=== PATIENT | female | born 1990 | race Caucasian/White ===

== ENCOUNTER 2018-11-06 09:40 | Observation (INO) | payer BC ==
[2018-11-06] MEDS ORDERED: Acetaminophen 500 MG Tab PO ONE (09:55)
[2018-11-06] MEDS ORDERED: Sodium Chloride 0.9% 1,000 ML IV ONE ×2 (09:59→11:00)
[2018-11-06] MEDS ORDERED: Ondansetron 4 MG/2 ML SDV IVPUSH STA (10:00)
--- NOTE | 2018-11-06 10:05 | EDM.PDOC ---
ED HPI GENERAL MEDICAL PROBLEM - General Chief Complaint: General Stated Complaint: shaking, R) breast pain Time Seen by Provider: 11/06/18 09:54 Source of Information: Reports: Patient History Limitations: Reports: No Limitations - History of Present Illness INITIAL COMMENTS - FREE TEXT/NARRATIVE: This patient is a 28 year old female that presents to the ER. Patient reports that this payton she woke up at 5am with pain under the right breast. Patient reports that she noticed it was red and hot to touch. Patient reports that she also woke up feeling like she had a headache, generally weak, dizziness, felt like she was going to pass out, nauseated, vomited, pale. She reports as the morning has progressed, she has felt worse. She reports she feels like she can not walk because she is going to pass out. This patient had originally presented to the clinic, but was moved to the ER. The patient does appear generally ill. The patient reports that she had a delivery without complication on . She reports she has been breast pumping. She uses a bilateral breast pump every about 4 hours. She reports having no issues prior to today. Patient denies pain into the chest other than the right breast, syncope, abd pain, incision healed pain, pelvic pain, back pain, neck pain, neck stiffness, urinary/bowel changes. Onset: Today Onset Date: 11/06/18 Onset Time: 05:00 Duration: Getting Worse Location: Reports: Chest (right breast) Front/Back Body Image: 1 - redness, heat, tenderness, pain Quality: Reports: Ache Severity: Moderate Worsens with: Reports: None Associated Symptoms: Reports: Headaches, Loss of Appetite, Nausea/Vomiting, Weakness. Denies: Confusion, Chest Pain, Cough, cough w sputum, Diaphoresis, Fever/Chills, Malaise, Rash, Seizure, Shortness of Breath, Syncope Right Breast Pain Score (Numeric/FACES): 7 - Related Data Allergies Allergy/AdvReac Type Severity Reaction Status Date / Time ibuprofen Allergy Swelling Verified 11/06/18 09:53 Home Meds: Home Meds Sertraline [Zoloft] 25 mg PO 1500 11/06/18 [History] ED ROS GENERAL - Review of Systems Review Of Systems: See Below Constitutional: Reports: Fever, Chills, Malaise, Weakness, Fatigue, Decreased Appetite HEENT: Reports: No Symptoms Respiratory: Reports: No Symptoms Cardiovascular: Reports: Lightheadedness Endocrine: Reports: No Symptoms GI/Abdominal: Reports: Nausea, Vomiting. Denies: Abdominal Pain, Diarrhea Musculoskeletal: Reports: Other (Right breast pain) Skin: Reports: Erythema (Under right breast) Neurological: Reports: No Symptoms Psychiatric: Reports: Anxiety Hematologic/Lymphatic: Reports: No Symptoms Immunologic: Reports: No Symptoms ED EXAM, GENERAL - Physical Exam Exam: See Below Exam Limited By: No Limitations General Appearance: Alert, WD/WN, Anxious, Mild Distress (appears ill) Eye Exam: Bilateral Eye: Normal Inspection, PERRL Ears: Normal External Exam, Normal Canal, Hearing Grossly Normal, Normal TMs Ear Exam: Bilateral Ear: Auricle Normal, Canal Normal, TM normal Nose: Normal Inspection, Normal Mucosa, No Blood Throat/Mouth: Normal Inspection, Normal Lips, Normal Teeth, Normal Gums, Normal Oropharynx, Normal Voice, No Airway Compromise Head: Atraumatic, Normocephalic Neck: Normal Inspection, Supple, Non-Tender, Full Range of Motion Respiratory/Chest: No Respiratory Distress, Lungs Clear, Normal Breath Sounds, No Accessory Muscle Use, Chest Non-Tender, Other (Under right breast redness, heat, tenderness, pain. No open wound. No nipple discharge. Redness does not spread into the chest. ) Cardiovascular: Normal Peripheral Pulses, Regular Rate, Rhythm, No Edema, No Gallop, No JVD, No Murmur, No Rub Peripheral Pulses: 2+: Radial (L), Radial (R), Posterior Tibial (L), Posterior Tibial (R), Dorsalis Pedis (L), Dorsalis Pedis (R) GI/Abdominal: Normal Bowel Sounds, Soft, Non-Tender, No Organomegaly, No Distention, No Abnormal Bruit, No Mass, Pelvis Stable (Female) Exam: Deferred Rectal (Female) Exam: Deferred Back Exam: Normal Inspection, Full Range of Motion. No: CVA Tenderness (L), CVA Tenderness (R), Paraspinal Tenderness Extremities: Normal Inspection, Normal Range of Motion, Non-Tender, No Pedal Edema, Normal Capillary Refill Neurological: Alert, Oriented, Normal Cognition, No Motor/Sensory Deficits Psychiatric: Anxious Skin Exam: Warm, Dry, Intact, No Rash, Pallor Lymphatic: No Adenopathy Course - Vital Signs Last Recorded V/S: Last Vital Signs Temp 99.4 F 11/06/18 21:39 Pulse 81 11/06/18 19:11 Resp 16 11/06/18 19:11 BP 101/50 L 11/06/18 19:11 Pulse Ox 98 11/06/18 19:11 - Orders/Labs/Meds Orders: Active Orders 24 hr Category Date Time Status CULTURE BLOOD [BC] Stat Lab 11/06/18 10:05 Received CULTURE BLOOD [BC] Stat Lab 11/06/18 10:40 Received Blood Culture x2 Reflex Set [OM.PC] Stat Oth 11/06/18 09:58 Ordered Medication Orders Acetaminophen (Tylenol) 650 mg PO Q4H PRN PRN Reason: Pain (Mild 1-3)/fever Last Admin: 11/06/18 19:53 Dose: 650 mg Ceftriaxone Sodium (Rocephin) 1 gm IVPUSH Q24H [facility] Last Admin: 11/06/18 15:02 Dose: Sodium Chloride (Normal Saline) 1,000 mls @ 125 mls/hr IV ASDIRECTED [facility] Last Admin: 11/06/18 21:42 Dose: 125 mls/hr Infusion: 11/06/18 21:42 Dose: 125 mls/hr Admin: 11/06/18 14:00 Dose: 125 mls/hr Sertraline HCl (Zoloft) 25 mg PO DAILY@1500 [facility] Labs: Laboratory Tests 11/06/18 11/06/18 11/06/18 Range/Units 10:05 10:05 10:05 WBC 8.3 (5.0-10.0) 10^3/uL RBC 4.25 (4.00-5.50) 10^6/uL Hgb 12.3 (12.0-16.0) g/dL Hct 38.0 (37.0-47.0) % MCV 89.4 (82.0-94.0) fL MCH 28.9 (27.0-32.0) pg MCHC 32.4 L (33.0-38.0) g/dL RDW Coeff of Tim 13.0 (11.0-15.0) % Plt Count 204 (150-400) 10^3/uL Neut % (Auto) 75.0 (35-85) % Lymph % (Auto) 17.3 (10-55) % [place] % (Auto) 5.1 (0-16) % Eos % (Auto) 2.5 (0-5) % Baso % (Auto) 0.1 (0-3) % Neut # (Auto) 6.19 (1.80-7.00) 10^3/uL Lymph # (Auto) 1.43 (1.00-4.80) 10^3/uL [place] # (Auto) 0.42 (0.00-0.80) 10^3/uL Eos # (Auto) 0.21 (0.00-0.45) 10^3/uL Baso # (Auto) 0.01 10^3/uL ESR 11 (0-20) mm/hr Sodium 142 (136-145) mEq/L Potassium 3.9 (3.5-5.0) mEq/L Chloride 105 (98-106) mEq/L Carbon Dioxide 26 (21-32) mmol/L BUN 9 (7-18) mg/dL Creatinine 0.9 (0.6-1.0) mg/dL Est Cr Clr Drug Dosing 88.68 mL/min Estimated GFR (MDRD) > 60 (>=60) mL/min Glucose 99 (75-99) mg/dL Lactic Acid 2.0 (0.4-2.0) mmol/L Calcium 9.4 (8.4-10.1) mg/dL Total Bilirubin 0.3 (0.0-1.0) mg/dL AST 18 (15-37) U/L ALT 27 (12-78) U/L Alkaline Phosphatase 81 (46-116) U/L C-Reactive Protein 2.8 H (0.2-0.8) mg/dL Total Protein 7.2 (6.4-8.2) g/dL Albumin 3.3 L (3.4-5.0) g/dL Urine Color (YELLOW) Urine Appearance (CLEAR) Urine pH (4.5-8.0) Ur Specific [place] (1.003-1.020) Urine Protein (NEGATIVE) mg/dL Urine Glucose (UA) (NEGATIVE) mg/dL Urine Ketones (NEGATIVE) mg/dL Urine Occult Blood (NEGATIVE) Urine Nitrite (NEGATIVE) Urine Bilirubin (NEGATIVE) Urine Urobilinogen (0.2-1.0) EU/dL Ur Leukocyte Esterase (NEGATIVE) Urine RBC (0-5) /HPF Urine WBC (0-5) /HPF Ur Squamous Epith Cells (NOT SEEN) /HPF Urine Bacteria (NOT SEEN) /HPF 11/06/18 Range/Units 10:20 WBC (5.0-10.0) 10^3/uL RBC (4.00-5.50) 10^6/uL Hgb (12.0-16.0) g/dL Hct (37.0-47.0) % MCV (82.0-94.0) fL MCH (27.0-32.0) pg MCHC (33.0-38.0) g/dL RDW Coeff of Tim (11.0-15.0) % Plt Count (150-400) 10^3/uL Neut % (Auto) (35-85) % Lymph % (Auto) (10-55) % [place] % (Auto) (0-16) % Eos % (Auto) (0-5) % Baso % (Auto) (0-3) % Neut # (Auto) (1.80-7.00) 10^3/uL Lymph # (Auto) (1.00-4.80) 10^3/uL [place] # (Auto) (0.00-0.80) 10^3/uL Eos # (Auto) (0.00-0.45) 10^3/uL Baso # (Auto) 10^3/uL ESR (0-20) mm/hr Sodium (136-145) mEq/L Potassium (3.5-5.0) mEq/L Chloride (98-106) mEq/L Carbon Dioxide (21-32) mmol/L BUN (7-18) mg/dL Creatinine (0.6-1.0) mg/dL Est Cr Clr Drug Dosing mL/min Estimated GFR (MDRD) (>=60) mL/min Glucose (75-99) mg/dL Lactic Acid (0.4-2.0) mmol/L Calcium (8.4-10.1) mg/dL Total Bilirubin (0.0-1.0) mg/dL AST (15-37) U/L ALT (12-78) U/L Alkaline Phosphatase (46-116) U/L C-Reactive Protein (0.2-0.8) mg/dL Total Protein (6.4-8.2) g/dL Albumin (3.4-5.0) g/dL Urine Color Yellow (YELLOW) Urine Appearance Clear (CLEAR) Urine pH 6.0 (4.5-8.0) Ur Specific [place] 1.020 (1.003-1.020) Urine Protein Negative (NEGATIVE) mg/dL Urine Glucose (UA) Negative (NEGATIVE) mg/dL Urine Ketones Negative (NEGATIVE) mg/dL Urine Occult Blood Trace-intact H (NEGATIVE) Urine Nitrite Negative (NEGATIVE) Urine Bilirubin Negative (NEGATIVE) Urine Urobilinogen 0.2 (0.2-1.0) EU/dL Ur Leukocyte Esterase Negative (NEGATIVE) Urine RBC 0-5 (0-5) /HPF Urine WBC 0-5 (0-5) /HPF Ur Squamous Epith Cells Occasional H (NOT SEEN) /HPF Urine Bacteria Occasional H (NOT SEEN) /HPF Meds: Medications Generic Name Dose Route Start Last Admin Trade Name Freq PRN Reason Stop Dose Admin Acetaminophen 650 mg 11/06/18 13:22 11/06/18 19:53 Tylenol PO 650 mg Q4H PRN Administration Pain (Mild 1-3)/fever Ceftriaxone Sodium 1 gm 11/06/18 15:00 11/06/18 15:02 Rocephin IVPUSH Not Given Q24H [facility] Sodium Chloride 1,000 mls @ 125 mls/hr 11/06/18 13:22 11/06/18 21:42 Normal Saline IV 125 mls/hr ASDIRECTED [facility] Administration Sertraline HCl 25 mg 11/07/18 15:00 Zoloft PO DAILY@1500 [facility] Discontinued Medications Generic Name Dose Route Start Last Admin Trade Name Freq PRN Reason Stop Dose Admin Acetaminophen 1,000 mg 11/06/18 09:55 11/06/18 10:06 Tylenol Extra Strength PO 11/06/18 09:56 1,000 mg ONETIME ONE Administration Ceftriaxone Sodium 1 gm 11/06/18 13:30 11/06/18 14:14 Rocephin IVPUSH 1 gm Q24H [facility] Administration Sodium Chloride 1,000 mls @ 1,000 mls/hr 11/06/18 09:59 11/06/18 09:50 Normal Saline IV 11/06/18 10:58 1,000 mls/hr .BOLUS ONE Administration Sodium Chloride 1,000 mls @ 999 mls/hr 11/06/18 11:00 11/06/18 11:00 Normal Saline IV 11/06/18 12:00 999 mls/hr .BOLUS ONE Administration Ondansetron HCl 4 mg 11/06/18 10:00 11/06/18 09:50 Zofran IVPUSH 11/06/18 10:01 4 mg NOW STA Administration - Re-Assessments/Exams Free Text/Narrative Re-Assessment/Exam: 11/06/18 13:01 Discussed patient case with Dr. Sweet OB cogeneration technician at [place]. She suggested admitted patient on IV Rocephin. Uisng warm compresses, massage, and constant pumping. Will admit patient. The patient reports she is feeling much better. Departure - Departure Time of Disposition: 13:02 Disposition: Refer to Observation Condition: Fair Clinical Impression: Mastitis in female - Discharge Information *PRESCRIPTION DRUG MONITORING PROGRAM REVIEWED*: No *COPY OF PRESCRIPTION DRUG MONITORING REPORT IN PATIENT IVANNA: No - My Orders Last 24 Hours: My Active Orders 11/06/18 09:58 Blood Culture x2 Reflex Set [OM.PC] Stat 11/06/18 10:05 CULTURE BLOOD [BC] Stat 11/06/18 10:40 CULTURE BLOOD [BC] Stat - Assessment/Plan Last 24 Hours: My Active Orders 11/06/18 09:58 Blood Culture x2 Reflex Set [OM.PC] Stat 11/06/18 10:05 CULTURE BLOOD [BC] Stat 11/06/18 10:40 CULTURE BLOOD [BC] Stat Plan: PLEASE SEE RN NOTE FOR PFSH. PLEASE USE ER H&P ADMIT H&P
[2018-11-06 10:30] LABS: CHLORIDE,CL 105 mEq/L (98-106); SODIUM,NA 142 mEq/L (136-145)
[2018-11-06] MEDS ORDERED: cefTRIAXone 1 GM Vial IVPUSH SCH (13:30)
[2018-11-06] MEDS: Sodium Chloride 0.9% 1,000 ML IV SCH ×2 (14:00→21:42)
[2018-11-06] MEDS: cefTRIAXone 1 GM Vial IVPUSH SCH (15:02)
[2018-11-06] MEDS: Acetaminophen 325 MG Tab PO PRN ×2 (19:53→23:46)
[2018-11-07] MEDS: Sodium Chloride 0.9% 1,000 ML IV SCH (05:41)
[2018-11-07 08:02] LABS: CHLORIDE,CL 109 mEq/L (98-106); SODIUM,NA 143 mEq/L (136-145)
--- NOTE | 2018-11-07 13:16 | PCM.DCSUM1 ---
Discharge Summary - Hospital Course HPI Initial Comments: This patent is a 28 year old female that was admitted yesterday for mastitits to the right breast. Patient has mild leukocytosis today. Her right breast redness has increased in size to now include the entire lower half of the right breast. There is no nipple involvement or discharge from the nipple. The patient has been fever free since midnight when she got Tylenol. She has not had Tylenol since. The patient reports that she is feeling much better. Patient not as pale on exam. The patient is able to get up and ambulate and go the bathroom without difficulty. The patient reports that she would like to go home. I have encouraged the patient to stay due to only being fever free for 12 hours and that was after Tylenol was given. She also has a little worsening of the redness site. There is not as much tenderness at the site as yesterday. The patient after consideration, would like to go home. Will do Rocephin out patient once a day for total of 7 days. 5 left. Unless, changed by her PCP or [facility] that she needs to followup with. - Discharge Data Discharge Date: 11/07/18 Discharge Disposition: Home, Self-Care Condition: Fair - Patient Instructions Diet: Usual Diet as Tolerated Activity: As Tolerated, No Strenuous Activities Activity, Other: Use warm compresses to the area. Massage the area. Driving: May Drive Today Showering/Bathing: May Shower Notify Provider of: Fever, Increased Pain, Swelling and Redness, Drainage, Nausea and/or Vomiting - Discharge Plan *PRESCRIPTION DRUG MONITORING PROGRAM REVIEWED*: No *COPY OF PRESCRIPTION DRUG MONITORING REPORT IN PATIENT IVANNA: No Home Medications: Home Meds Sertraline [Zoloft] 25 mg PO 1500 11/06/18 [History] Patient Handouts: Mastitis, [id number], and Mastitis, Cellulitis, Adult, [id number] Forms: ED Department Discharge Referrals: Alisa Gold MD [Primary Care Provider] - - Discharge Summary/Plan Comment DC Time >30 min.: No Discharge Summary/Plan Comment: Followup with primary care provider or [facility] Raissa on Thursday: Please call for appointment Apply warm compresses to the area Massage the area Pump every 2 hours Return for worsening of condition or any emergent concerns such as increase in redness, fever, vomiting, increase in pain May take over the counter Tylenol for pain and fever Increase fluids Return daily at Noon for Rocephin 1g IM injection mixed with Lidocaine: Present to the Nurses station. Do this until Thursday: Unless changed by your provider you see this week. - General Info Date of Service: 11/07/18 Functional Status: Reports: Pain Controlled, Tolerating Diet, Ambulating, Urinating - Review of Systems General: Reports: No Symptoms, Other (No fever since midnight) HEENT: Reports: No Symptoms Pulmonary: Reports: No Symptoms Cardiovascular: Reports: No Symptoms Gastrointestinal: Reports: No Symptoms Genitourinary: Reports: No Symptoms Musculoskeletal: Reports: No Symptoms Skin: Reports: Other (Right breast redness, heat to the lower half of breast. No streaking into chest or nipple. No discharge. No open wounds. ) Neurological: Reports: No Symptoms Psychiatric: Reports: No Symptoms - Patient Data Vitals - Most Recent: Last Vital Signs Temp 97.2 F 11/07/18 11:22 Pulse 56 L 11/07/18 11:22 Resp 16 11/07/18 11:22 BP 97/50 L 11/07/18 11:22 Pulse Ox 99 11/07/18 11:22 Weight - Most Recent: 154 lb 9.6 oz I&O - Last 24 hours: Intake & Output 11/06/18 11/07/18 11/07/18 22:59 06:59 14:59 Intake Total 963 998 Balance 963 998 Lab Results - Last 24 hrs: Laboratory Results - last 24 hr 11/07/18 11/07/18 Range/Units 07:00 07:00 WBC 10.5 H (5.0-10.0) 10^3/uL RBC 3.81 L (4.00-5.50) 10^6/uL Hgb 11.1 L (12.0-16.0) g/dL Hct 34.5 L (37.0-47.0) % MCV 90.6 (82.0-94.0) fL MCH 29.1 (27.0-32.0) pg MCHC 32.2 L (33.0-38.0) g/dL RDW Coeff of Tim 13.3 (11.0-15.0) % Plt Count 183 (150-400) 10^3/uL Neut % (Auto) 63.1 (35-85) % Lymph % (Auto) 23.5 (10-55) % [place] % (Auto) 8.1 (0-16) % Eos % (Auto) 5.2 H (0-5) % Baso % (Auto) 0.1 (0-3) % Neut # (Auto) 6.61 (1.80-7.00) 10^3/uL Lymph # (Auto) 2.46 (1.00-4.80) 10^3/uL [place] # (Auto) 0.85 H (0.00-0.80) 10^3/uL Eos # (Auto) 0.55 H (0.00-0.45) 10^3/uL Baso # (Auto) 0.01 10^3/uL Sodium 143 (136-145) mEq/L Potassium 3.7 (3.5-5.0) mEq/L Chloride 109 H (98-106) mEq/L Carbon Dioxide 26 (21-32) mmol/L BUN 9 (7-18) mg/dL Creatinine 0.8 (0.6-1.0) mg/dL Est Cr Clr Drug Dosing 99.76 mL/min Estimated GFR (MDRD) > 60 (>=60) mL/min Glucose 92 (75-99) mg/dL Calcium 8.4 (8.4-10.1) mg/dL WON Results - Last 24 hrs: Microbiology 11/06/18 10:40 Aerobic Blood Culture - Preliminary Blood - Venous - Lab Draw NO GROWTH AFTER 1 DAY Anaerobic Blood Culture - Preliminary NO GROWTH AFTER 1 DAY 11/06/18 10:05 Aerobic Blood Culture - Preliminary Blood - Venous NO GROWTH AFTER 1 DAY Anaerobic Blood Culture - Preliminary NO GROWTH AFTER 1 DAY 11/06/18 10:10 Influenza Type A Antigen Screen - Final Nasal, Unspecified NEGATIVE INFLUENZA A VIRUS AG Influenza Type B Antigen Screen - Final NEGATIVE INFLUENZA B VIRUS AG Med Orders - Current: Current Medications Acetaminophen (Tylenol) 650 mg PO Q4H PRN PRN Reason: Pain (Mild 1-3)/fever Last Admin: 11/06/18 23:46 Dose: 650 mg Ceftriaxone Sodium (Rocephin) 1 gm IVPUSH Q24H [facility] Last Admin: 11/06/18 15:02 Dose: Not Given Sertraline HCl (Zoloft) 25 mg PO DAILY@1500 [facility] Discontinued Medications Acetaminophen (Tylenol Extra Strength) 1,000 mg PO ONETIME ONE Stop: 11/06/18 09:56 Last Admin: 11/06/18 10:06 Dose: 1,000 mg Ceftriaxone Sodium (Rocephin) 1 gm IVPUSH Q24H [facility] Last Admin: 11/06/18 14:14 Dose: 1 gm Sodium Chloride (Normal Saline) 1,000 mls @ 1,000 mls/hr IV .BOLUS ONE Stop: 11/06/18 10:58 Last Admin: 11/06/18 09:50 Dose: 1,000 mls/hr Sodium Chloride (Normal Saline) 1,000 mls @ 999 mls/hr IV .BOLUS ONE Stop: 11/06/18 12:00 Last Admin: 11/06/18 11:00 Dose: 999 mls/hr Sodium Chloride (Normal Saline) 1,000 mls @ 125 mls/hr IV ASDIRECTED [facility] Last Admin: 11/07/18 05:41 Dose: 125 mls/hr Ondansetron HCl (Zofran) 4 mg IVPUSH NOW STA Stop: 11/06/18 10:01 Last Admin: 11/06/18 09:50 Dose: 4 mg - Exam General: Reports: Alert, Oriented, Cooperative, No Acute Distress HEENT: Reports: Pupils Equal, Pupils Reactive, Mucous Membr. Moist/[place] Neck: Reports: Supple, Trachea Midline, No JVD, No Thyromegaly Lungs: Reports: Clear to Auscultation, Normal Respiratory Effort Cardiovascular: Reports: Regular Rate, Regular Rhythm, No Murmurs GI/Abdominal Exam: Normal Bowel Sounds, Soft, Non-Tender, No Organomegaly, No Distention, No Abnormal Bruit, No Mass, Pelvis Stable (Female) Exam: Deferred Rectal (Female) Exam: Deferred Back Exam: Reports: Normal Inspection, Full Range of Motion Extremities: Normal Inspection, Normal Range of Motion, Non-Tender, No Pedal Edema, Normal Capillary Refill Skin: Reports: Warm, Dry, Intact Neurological: Reports: No New Focal Deficit Psy/Mental Status: Reports: Alert, Normal Affect, Normal Mood
[2018-11-07] MEDS: cefTRIAXone 1 GM Vial IVPUSH SCH (14:04)
[2018-11-07] MEDS ORDERED: SERTRALINE 25 MG PO SCH (15:00)
== END 2018-11-07 14:15 | disposition home or self-care (01) ==
LOC: CC.ED 09:40 → UNDOADMOB 13:00 → CC.MS 13:00 → UNDODISOB 11-07 14:15
PROVIDERS: ADMIT Nurse Practitioner; ATTEND Family Medicine
DX: N61.0 Mastitis without abscess (principal); D72.829 Elevated white blood cell count, unspecified
CPT/HCPCS: 36415; 80048; 80053; 81001; 83605; 85025; 85651; 86140; 87040; 87804; 96361; 96374; 99284; A9270; J0696; J2405; J7030; 94761

== ENCOUNTER 2022-07-28 19:10 | Emergency (ER) | payer BC | END 2022-07-28 19:50 | disposition home or self-care (01) | LOC: CC.ED 19:30 | DX: R07.81 Pleurodynia (principal) | CPT/HCPCS: 99283 ==

== ENCOUNTER 2022-07-29 10:15 | Emergency (ER) | payer BC ==
[2022-07-29] MEDS ORDERED: Sodium Chloride 0.9% 1,000 ML IV ONE (10:20)
== END 2022-07-29 11:50 | disposition home or self-care (01) ==
LOC: CC.ED 10:15
DX: O20.0 Threatened abortion (principal); O99.891 Other specified diseases and conditions complicating pregnancy; R42 Dizziness and giddiness
CPT/HCPCS: 36415; 84702; 85025; 86850; 86900; 86901; 96360; 99284; J7030

== ENCOUNTER 2025-01-09 22:35 | Emergency (ER) | payer BC ==
[2025-01-09] MEDS: methylPREDNISolone Sodium Succinate 40 MG/1 ML SDV IM ONE (23:21)
[2025-01-09] MEDS: Amoxicillin 500 MG Cap PO ONE (23:21)
== END 2025-01-09 23:35 | disposition home or self-care (01) ==
LOC: CC.ED 22:35
DX: J02.0 Streptococcal pharyngitis (principal); Z88.6 Allergy status to analgesic agent; Z79.811 Long term (current) use of aromatase inhibitors
CPT/HCPCS: 87651; 96372; 99283; A9270-GY; J2919